=== PATIENT | female | born 1970 | race Caucasian/White ===

== ENCOUNTER 2017-07-13 13:12 | Emergency (ER) | payer OTHER ==
[~2017-07-13] VITALS: Wt 83.3 kg
--- NOTE | 2017-07-13 13:23 | ERD ---
ER Documentation Chief Complaint Chief Complaint 6 days post c/o leg swelling HPI The patient is a 47-year-old female, presenting to the ER because of bilateral leg edema. She has given about 6 days ago via , denies fever, chills, cough, neck pain, chest pain, dyspnea, orthopnea, PND, abdominal pain, vomiting, dysuria, diarrhea. She does not smoke nor drink Past medical history: None Past surgical history: 2 ROS All systems reviewed and are negative except as per history of present illness. Physical Exam Vitals Vital Signs Date Time Temp Pulse Resp B/P Pulse Ox O2 Delivery O2 Flow Rate FiO2 07/13/17 13:15 98.9 71 18 119/66 99 Physical Exam Const: No acute distress. Head: Atraumatic. Eyes: Normal Conjunctiva. ENT: Normal External Ears, Nose and Mouth. Neck: Full range of motion. No meningismus. Resp: Clear to auscultation bilaterally. Cardio: Regular rate and rhythm. Abd: Soft, non distended, normal bowel sounds, non tender. Skin: No petechiae or rashes. Back: No midline or flank tenderness. Ext: Minimal bilateral leg edema, no calf tenderness Neur: Awake and alert. No focal deficit Psych: Normal Mood and Affect. Procedures/MDM MEDICAL MAKING DECISION: The patient is a 46-year-old female, presenting with acute peripheral edema status post delivery. She is stable for outpatient follow-up. The differential diagnoses considered include but are not limited to DVT, lymphedema, CHF, cellulitis, hepatic insufficiency, renal insufficiency, diet related, Venous insufficiency Departure Diagnosis: Primary Impression: Mild peripheral edema Condition: Good Comments I discussed the findings with the patient. I advised the patient to follow-up with the primary physician in about 1-2 days, sooner if needed and return if any concern. Disclaimer: Inadvertent spelling and grammatical errors are likely due to EHR/ dictation software use and do not reflect on the overall quality of patient care. Also, please note that the electronic time recorded on this note does not necessarily reflect the actual time of the patient encounter. STEPAN ALVAREZ MD Jul 13, 2017 13:23
== END 2017-07-13 15:00 | disposition home or self-care (01) ==
LOC: E/R 13:12
DX: O12.05 Gestational edema, complicating the puerperium (principal)
CPT/HCPCS: 99282